=== PATIENT | male | born 1985 | race Two or more races ===

== ENCOUNTER 2018-05-25 22:03 | Emergency (ER) | payer MEDICAID, OTHER ==
[~2018-05-25] VITALS: Ht 177.8 cm; Wt 95.3 kg
[2018-05-26 02:37] LABS: Alcohol, Urine < 3.0 mg/dL (0-5); Amphetamine Screen, Urine POSITIVE (NEGATIVE); Barbiturate Scree,Urine NEGATIVE (NEGATIVE); Benzodiazephine Screen, Urine NEGATIVE (NEGATIVE); Cannabinoid Screen, Urine NEGATIVE (NEGATIVE); Cocaine Screen, Urine NEGATIVE (NEGATIVE); Opiate Scree,Urine POSITIVE (NEGATIVE); Phencyclidine Screen, Urine NEGATIVE (NEGATIVE)
[2018-05-26] MEDS: KETOROLAC TROMETH 60MG/2ML VIAL IM ONE (02:37)
[2018-05-26 03:30] VITALS: BP 134/79
[2018-05-26 04:12] LABS: Basophils # (auto) 0 uL; Basophils % (auto) 0.5 % (0.0-2.0); Eosinophils # (auto) 0.2 uL; Eosinophils % (auto) 1.8 % (0.0-7.0); Hematocrit 43.4 % (41.0-53.0); Hemoglobin 14.5 g/dL (13.5-17.5); Lymphocytes # (auto) 2.6 uL; Lymphocytes % (auto) 30.2 % (10.0-50.0); Mean Corpuscular Hemoglobin 30.5 pg (28.0-32.0); Mean Corpuscular Hgb Conc. 33.3 g/dL (32.0-36.0); Mean Corpuscular Volume 91.7 fL (80.0-100.0); Monocytes # (auto) 0.7 uL; Monocytes % (auto) 7.7 % (0.0-12.0); Neutrophils # (auto) 5.1 uL; Neutrophils % (auto) 59.8 % (37.0-80.0); Nucleated Red Blood Cells % 0.1 %; Platelet Count (auto) 188 10^3/uL (140-450); Red Blood Cells 4.74 10^6/uL (4.5-5.90); Red Cell Distribution Width 13.1 % (11.8-14.3); White Blood Cell 8.5 10^3/uL (4.4-10.8)
[2018-05-26 04:50] LABS: Albumin 3.7 g/dL (3.4-5.0); Anion Gap 8 (5-15); Blood Urea Nitrogen 8 mg/dL (7-18); Calcium 8.7 mg/dL (8.5-10.1); Carbon Dioxide 27 mmol/L (21-32); Chloride 105 mmol/L (98-107); Sodium 140 mmol/L (136-145)
[2018-05-26 04:53] LABS: Alanine Aminotransferase 20 U/L (16-61); Aspartate Aminotransferase 11 U/L (15-37); BUN/Creatinine Ratio 8.9; GFR African American 125 mL/min; GFR Non-African American 103 mL/min; Glucose 94 mg/dL (74-106)
[2018-05-26 04:58] LABS: Alkaline Phosphatase 74 U/L (45-117); Bilirubin, Total 0.3 mg/dL (0.2-1.0); Total Protein 7.5 g/dL (6.4-8.2)
== END 2018-05-26 04:51 | disposition home or self-care (01) ==
LOC: EDBD 22:03 → ER 22:03
DX: S29.011A Strain of muscle and tendon of front wall of thorax, initial encounter (principal); F19.10 Other psychoactive substance abuse, uncomplicated; X58.XXXA Exposure to other specified factors, initial encounter; Y93.89 Activity, other specified; Y99.8 Other external cause status; Y92.89 Other specified places as the place of occurrence of the external cause
CPT/HCPCS: 36415; 71045; 80053; 80307; 84484; 85025; 96372; 99284; J1885

== ENCOUNTER 2020-03-21 20:41 | Emergency (ER) | payer MEDICAID ==
[~2020-03-21] VITALS: Ht 177.8 cm; Wt 99.8 kg
[2020-03-21 21:06] VITALS: BP 140/98
[2020-03-21 21:28] LABS: Basophils # (auto) 0 10 ^3/uL (0-0.2); Basophils % (auto) 0.3 % (0.0-2.0); Eosinophils # (auto) 0.4 10 ^3/uL (0-0.8); Eosinophils % (auto) 2.7 % (0.0-7.0); Hematocrit 42.8 % (41.0-53.0); Hemoglobin 14.1 g/dL (13.5-17.5); Lymphocytes # (auto) 2.2 10 ^3/uL (0.4-5.4); Lymphocytes % (auto) 17.1 % (10.0-50.0); Mean Corpuscular Hemoglobin 30.2 pg (28.0-32.0); Mean Corpuscular Volume 91.5 fL (80.0-100.0); Monocytes # (auto) 0.6 10 ^3/uL (0-1.3); Monocytes % (auto) 4.9 % (0.0-12.0); Neutrophils # (auto) 9.8 10 ^3/uL (1.6-8.6); Nucleated Red Blood Cells % 0.1 %; Platelet Count (auto) 209 10^3/uL (140-450); Red Blood Cells 4.67 10^6/uL (4.5-5.90); Red Cell Distribution Width 12.9 % (11.8-14.3)
[2020-03-21 21:52] LABS: Calcium 9.2 mg/dL (8.5-10.1); Potassium 3.9 mmol/L (3.5-5.1)
[2020-03-21 21:56] LABS: Bilirubin, Total 0.2 mg/dL (0.2-1.0); Total Protein 8.1 g/dL (6.4-8.2)
[2020-03-21] MEDS ORDERED: AZITHROMYCIN 250 MG TAB PO ONE (23:45)
[2020-03-21] MEDS ORDERED: cefTRIAXone SODIUM 250 MG VL IM ONE (23:45)
[2020-03-22 00:30] LABS: Urine Bacteria NONE SEEN /hpf (None Seen); Urine Blood Negative /uL (Negative); Urine Mucus MANY (None Seen); Urine Specific Gravity 1.032 (1.001-1.035); Urine WBC 23 /hpf (0 - 3)
[2020-03-22 00:48] LABS: Alcohol, Urine < 3.0 mg/dL (0-10); Amphetamine Screen, Urine POSITIVE (NEGATIVE); Barbiturate Scree,Urine NEGATIVE (NEGATIVE); Benzodiazephine Screen, Urine NEGATIVE (NEGATIVE); Cannabinoid Screen, Urine NEGATIVE (NEGATIVE); Cocaine Screen, Urine NEGATIVE (NEGATIVE); Opiate Scree,Urine NEGATIVE (NEGATIVE); Phencyclidine Screen, Urine NEGATIVE (NEGATIVE)
== END 2020-03-22 01:10 | disposition home or self-care (01) ==
LOC: ER 20:44
DX: N45.1 Epididymitis (principal); N39.0 Urinary tract infection, site not specified; F15.20 Other stimulant dependence, uncomplicated; Z20.2 Contact with and (suspected) exposure to infections with a predominantly sexual mode of transmission
CPT/HCPCS: 36415; 76870; 80053; 80307; 81001; 85025; 96372; 99284; J0696

== ENCOUNTER 2024-05-25 19:00 | Emergency (ER) | payer MEDICAID ==
[~2024-05-25] VITALS: Ht 177.8 cm; Wt 100.0 kg
--- NOTE | 2024-05-25 19:16 | ECG ---
[facility] Test Date: 2024-05-25 Test Time: 19:10:12 Pat Name: PACO RIOS Department: ED Room: Gender: M Records Administrator: ARVIND : 1985 Requested By: DEREK BARRERA Order Number: [id number] Reading MD: Rodrick Rose Measurements Intervals [place] Rate: 134 P: 63 [place]: 129 QRS: 51 QRSD: 79 T: -58 QT: 362 QTc: 541 Interpretive Statements Sinus tachycardia Left atrial enlargement Abnormal R-wave progression, early transition Borderline repolarization abnormality Prolonged QT interval Electronically Signed On 05-26-2024 12:51:11 PST by Rodrick Rose Please click the below link to view image of tracing.
--- NOTE | 2024-05-25 19:18 | ED.PDOC ---
SOB-HPI HPI Comments 38-year-old male who came to ER via EMS for shortness of breath. Patient does have history of asthma. States he has been having cough and shortness of breath since yesterday. He has been having headaches generalized weakness, with substernal chest pains radiating to both his armpits. Patient was seen at urgent care and showed negative results. Today patient started having upper abdominal pain associated with nausea, which persisted and worsened throughout the day prompting him to call paramedics. On scene, patient was saturating at 90% on room air. Patient was placed at 2lpm and it improved to 95%. Patient was also given Tylenol and Zofran while en route to the ER. Blood sugar was 113 and was tachycardic on scene. Chief Complaint: Chest Pain Time Seen by MD: 19:18 Primary Care Provider: NITIN Erickson notes: Brand Marketing Specialist Notes Information Source: Patient Mode of Arrival: EMS Severity: Moderate Timing: Days Duration: Intermittent Context: With Light Exertion PE Risk Factors: None History of: None Prehospital treatment: Oxygen, Treatment Associated Signs and Symptoms: Chest Pain Quality: Tightness Radiation: Arm (R), Arm (L) If cough with SOB: Non-Productive Review of Systems: REVIEW OF SYSTEMS: No fever, no chills, or fatigue HEENT: No sore throat, no earache, no congestion, no neck pain. Cardiac: (+)chest pain. No palpitations. Lungs: (+)shortness of breath, cough. GI: No nausea, no vomiting, no diarrhea, no constipation, (+) abdominal pain : No dysuria, frequency, or urgency. No hematuria. Musculoskeletal: No joint pain , no joint swelling, no extremity edema. Skin: No rash, no itching. Neuro: (+) headache, no dizziness, (+)weakness Vital Signs Vital Signs Date Time Temp Pulse Resp B/P (MAP) Pulse Ox O2 Delivery O2 Flow Rate FiO2 05/25/24 20:53 97 Nasal Cannula* 2 28 05/25/24 20:52 99.9 05/25/24 20:51 128 18 126/89 (101) Physical Exam General: Awake, alert and oriented. No acute distress. Skin: Skin in warm, dry and intact. Appropriate color for ethnicity. Nailbeds pink with no cyanosis. HEENT: The head is normocephalic and atraumatic. Conjunctivae are clear without exudates or hemorrhage. Sclera is non-icteric. EOM are intact. No signs of nystagmus. Eyelids are normal in appearance without swelling or lesions. Oral mucosa is pink and moist Neck: The neck is supple with normal range of motion. No JVD. Cardiac: Heart rate and rhythm are normal. No murmurs, gallops, or rubs are auscultated. Respiratory: Labored breathing. Wheezing bilaterally. Abdominal: Abdomen is soft, generalized tenderness. Bowel sounds are present and normoactive in all four quadrants. Extremities: Upper and lower extremities are atraumatic in appearance without deformity or edema. Neurological: The patient is awake, alert and oriented to person, place, and time with normal speech. Speech is clear. There is no facial asymmetry. Psychiatric: Appropriate mood and affect. Good judgement and insight. No visual or auditory hallucinations. Past Medical History PAST MEDICAL HISTORY: Asthma Surgical History: Denies all surgeries Family History Family History: Reviewed,noncontributory to illness Social History Smoker: Cigarettes Alcohol: Denies ETOH Use Drugs: Denies Drug Use Lives In: Home Was a procedure done? Was a procedure done?: No Differential Dx Differential Diagnosis: Anxiety, Asthma, Bronchitis, Pneumonia, Pulmonary Embolism, Respiratory Distress, URI, Other Comments Peptic ulcer disease, gastritis, viral syndrome, pancreatitis, cholecystitis, appendicitis, diverticulitis, other X-Ray, Labs, Meds, VS Vital Signs Date Time Temp Pulse Resp B/P (MAP) Pulse Ox O2 Delivery O2 Flow Rate FiO2 05/25/24 20:53 97 Nasal Cannula* 2 05/25/24 20:52 99.9 05/25/24 20:51 99.9 128 18 126/89 (101) 96 99.9 05/25/24 20:29 133 05/25/24 20:04 100.7 05/25/24 19:48 139 20 97 Nasal Cannula* 2 28 05/25/24 19:48 100.7 139 20 113/73 (86) 97 100.7 05/25/24 19:39 20 95 Nasal Cannula* 2 28 05/25/24 19:13 100.7 140 28 138/88 (105) 95 05/25/24 19:11 134 Lab Test 05/25/24 20:04 05/25/24 19:32 05/25/24 19:21 05/25/24 19:19 Range/Units Urine Opiates Screen Pending Urine Fentanyl Screen Pending Urine Barbiturates Screen Pending Urine Phencyclidine Screen Pending Urine Amphetamines Screen Pending Urine Benzodiazepines Screen Pending Urine Cocaine Screen Pending Urine Cannabinoids Screen Pending Respiratory Syncytial Virus Antigen Pending SARS-CoV-2 Antigen (Rapid) Pending Blood Gas Specimen Type Arterial Blood Gas Sample Site Right radial Blood Gas Patient Temperature 37.0 Arterial Blood Date Drawn Arterial Blood pH 7.447 7.350-7.450 Arterial Blood Partial Pressure CO2 34.8 L 35.0-48.0 mmHg Arterial Blood Partial Pressure O2 67.8 L 83.0-108.0 mmHg Arterial Blood HCO3 23.5 21.0-28.0 mmol/L Arterial Blood Oxygen Saturation 94.4 94.0-98.0 % Arterial Blood Base Excess 0.0 -2.0-3.0 mmol/L Arterial Blood Oxyhemoglobin 93.0 L 94.0-98.0 % Arterial Blood Carboxyhemoglobin 1.1 0.5-1.5 % Arterial Blood Methemoglobin 0.4 0.0-1.5 % Neal Test Modified Blood Gas Total Hemoglobin 14.50 13.5-17.5 g/dL Blood Gas Liter Flow 2.00 Blood Gas Modality Nasal cannula FiO2 % 28.0 White Blood Count 11.7 H 4.4-10.8 10^3/uL Red Blood Count 4.48 L 4.5-5.90 10^6/uL Hemoglobin 13.6 13.5-17.5 g/dL Hematocrit 40.2 L 41.0-53.0 % Mean Corpuscular Volume 89.7 80.0-100.0 fL Mean Corpuscular Hemoglobin 30.4 28.0-32.0 pg Mean Corpuscular Hemoglobin Concent 33.8 32.0-36.0 g/dL Red Cell Distribution Width 13.7 11.8-14.3 % Platelet Count 163 140-450 10^3/uL Mean Platelet Volume 9.9 6.9-10.8 fL Neutrophils (%) (Auto) 90.9 H 37.0-80.0 % Lymphocytes (%) (Auto) 2.8 L 10.0-50.0 % Monocytes (%) (Auto) 5.7 0.0-12.0 % Eosinophils (%) (Auto) 0.4 0.0-7.0 % Basophils (%) (Auto) 0.2 0.0-2.0 % Neutrophils # (Auto) 10.6 H 1.6-8.6 10 ^3/uL Lymphocytes # (Auto) 0.3 L 0.4-5.4 10 ^3/uL Monocytes # (Auto) 0.7 0-1.3 10 ^3/uL Eosinophils # (Auto) 0 0-0.8 10 ^3/uL Basophils # (Auto) 0 0-0.2 10 ^3/uL Nucleated Red Blood Cells 0.0 % Erythrocyte Sedimentation Rate 13 0-20 mm/hr D-Dimer, Quantitative 0.36 0.0-0.49 mg/L FEU Sodium Level 135 L 136-145 mmol/L Potassium Level 4.1 3.5-5.1 mmol/L Chloride Level 101 98-107 mmol/L Carbon Dioxide Level 25 20-31 mmol/L Anion Gap 9 5-15 Blood Urea Nitrogen 10 9-23 mg/dL Creatinine 0.88 0.700-1.30 mg/dL Glomerular Filtration Rate Calc 112 >90 mL/min BUN/Creatinine Ratio 11.4 10.0-20.0 Serum Glucose 140 H 74-106 mg/dL Calcium Level 9.5 8.7-10.4 mg/dL Magnesium Level 1.5 L 1.6-2.6 mg/dL Total Bilirubin 0.3 0.2-1.0 mg/dL Aspartate Amino Transferase (AST) 21 13-40 U/L Alanine Aminotransferase (ALT) 31 7-40 U/L Alkaline Phosphatase 85 46-116 U/L Troponin I High Sensitivity < 3 L </=54 ng/L C-Reactive Protein High Sensitivity 5.35 H <1.0 mg/dL B-Type Natriuretic Peptide 13.95 0-100 pg/mL Total Protein 7.3 5.7-8.2 g/dL Albumin 4.4 3.2-4.8 g/dL Lipase 29 12-53 U/L Beta HCG, Quantitative < 0.0 L 0-2 mIU/mL Influenza Type A Antigen Pending Influenza Type B Antigen Pending Current Medications Medications (Trade) Dose Ordered Sig/Richard Route Start Time Stop Time Status Last Admin Sodium Chloride 1,000 ml @ 1,000 mls/hr Q1H ONCE IVB 05/25/24 19:15 05/25/24 20:14 DC 05/25/24 19:53 Ketorolac Tromethamine (Toradol Injection) 30 mg ONCE ONCE IV 05/25/24 19:15 05/25/24 19:16 DC 05/25/24 19:53 Albuterol (Ventolin Medneb) 2.5 mg ONCE ONCE NEB 05/25/24 19:15 05/25/24 19:16 DC 05/25/24 19:44 Ipratropium [place] (Atrovent Medneb) 0.5 mg ONCE ONCE NEB 05/25/24 19:15 05/25/24 19:16 DC 05/25/24 19:45 Acetaminophen (Tylenol Tablet) 650 mg ONCE ONCE PO 05/25/24 19:53 05/25/24 19:54 DC 05/25/24 20:04 EXAM: XY CHEST TWO VIEWS ROUTINE FINDINGS: Lines and tubes: None Chest: The heart size and pulmonary vasculature is within normal limits. No pleural effusion, pneumothorax, or consolidation. The osseous structures are grossly intact. IMPRESSION: No acute cardiopulmonary abnormality. Images Reviewed?: Images reviewed and evaluated by me (Gama) Time of 1ST Reevaluation: 19:09 Reevaluation 1ST: Unchanged Time of 2ND Reevaluation: 21:16 Reevaluation 2ND: Abdominal pain resolved. Patient Education/Counseling: Diagnosis, Treatment Family Education/Counseling: No Family Present Departure 1 Departure Time of Disposition: 21:15 Impression: Primary Impression: Asthma exacerbation Additional Impressions: Hypoxia Chest pain Abdominal pain Disposition: ADMITTED INPATIENT Condition: Stable Comments 38-year-old male present to the emergency department with chest pain, abdominal pain, shortness of breath, hypoxia with a history of asthma, fever, tachycardia. Hypoxia confirmed on ABG. Mild leukocytosis noted. Abdominal pain resolved. D-dimer negative. Troponin and EKG negative for STEMI/NSTEMI. Patient was given analgesic, nebulizer treatment, steroid, antibiotics, IV fluid. Oxygen supplemented by 2 L nasal cannula Patient admitted for further treatment, evaluation and monitoring. Extensive evaluation was performed in attempt to to identify or rule out: (See differential diagnosis section) The following tests were ordered, and results were reviewed by me: (See diagnostic results section) The following test were independently interpreted by me: EKG, chest x-ray -no acute disease I reviewed and agreed with the following test results read by other providers: Chest x-ray I reviewed the following notes from the pt's past medical encounters: (None available at this time) Additional information was gathered from interviewing the following independent historians: EMS personnel Discussion of management or test interpretation with external physician/other qualified health managed care specialist: N/A Addressed an acute or chronic illness that poses a threat to life or bodily function: Asthma with acute exacerbation with hypoxia Decision regarding hospitalization or escalation of hospital level of care: Risk and benefits of admission for further treatment of patient's condition was considered. Due to patient's current clinical condition, high risk of decline and poor outcome if discharged and need for further inpatient management and monitoring, patient will be admitted to the hospital. Critical Care Note Critical Care Time?: Yes (35 min-critical care time only) Critical care comment: Total critical care time: Approximately 35 minutes Due to a high probability of clinically significant, life threatening de terioration, the patient required my highest level of preparedness to intervene emergently and I personally spent this critical care time directly and personally managing the patient. This critical care time included obtaining a history; examining the patient; pulse oximetry; ordering and review of studies; arranging urgent treatment with development of a management plan; evaluation of patient's response to treatment; frequent reassessment; and, discussions with other providers. This critical care time was performed to assess and manage the high probability of imminent, life-threatening deterioration that could result in multi-organ failure. It was exclusive of separately billable procedures and treating other patients and teaching time. Please see my other sections and the rest of the note for further information on patient assessment and treatment. Stability Stability form required: No Heart Score Heart Score: Heart Score Response (Comments) Value History Slightly Suspicious 0 EKG Normal 0 Age <45 0 Risk Factors No known risk factors 0 Troponin Normal limit 0 Total 0 I personally scribed for DEREK BARRERA MD ([email or web address]) on 05/25/24 at 19:18. Electronically submitted by Rey Romero ([facility]). I personally scribed for DEREK BARRERA MD ([email or web address]) on 05/25/24 at 20:41. Electronically submitted by Rey Romero ([facility] DEREK BARRERA MD May 25, 2024 19:18
[2024-05-25 19:35] LABS: Basophils # (auto) 0 10 ^3/uL (0-0.2); Basophils % (auto) 0.2 % (0.0-2.0); Eosinophils # (auto) 0 10 ^3/uL (0-0.8); Eosinophils % (auto) 0.4 % (0.0-7.0); Hematocrit 40.2 % (41.0-53.0); Hemoglobin 13.6 g/dL (13.5-17.5); Lymphocytes # (auto) 0.3 10 ^3/uL (0.4-5.4); Lymphocytes % (auto) 2.8 % (10.0-50.0); Mean Corpuscular Hemoglobin 30.4 pg (28.0-32.0); Mean Corpuscular Hgb Conc. 33.8 g/dL (32.0-36.0); Mean Corpuscular Volume 89.7 fL (80.0-100.0); Monocytes # (auto) 0.7 10 ^3/uL (0-1.3); Monocytes % (auto) 5.7 % (0.0-12.0); Neutrophils # (auto) 10.6 10 ^3/uL (1.6-8.6); Neutrophils % (auto) 90.9 % (37.0-80.0); Platelet Count (auto) 163 10^3/uL (140-450); Red Blood Cells 4.48 10^6/uL (4.5-5.90); Red Cell Distribution Width 13.7 % (11.8-14.3); White Blood Cell 11.7 10^3/uL (4.4-10.8)
[2024-05-25] MEDS: ALBUTEROL SULF 2.5 MG/0.5ML(0.5%) NEB SOLN NEB ONE (19:44)
[2024-05-25] MEDS: IPRATROPIUM BROM 0.5 MG/2.5ML INH SOL NEB ONE (19:45)
[2024-05-25 19:48] VITALS: PULSE 139; RESP 20; O2SAT 97
[2024-05-25 19:53] LABS: Alanine Aminotransferase 31 U/L (7-40); Albumin 4.4 g/dL (3.2-4.8); Alkaline Phosphatase 85 U/L (46-116); Anion Gap 9 (5-15); Aspartate Aminotransferase 21 U/L (13-40); BUN/Creatinine Ratio 11.4 (10.0-20.0); Bilirubin, Total 0.3 mg/dL (0.2-1.0); Blood Urea Nitrogen 10 mg/dL (9-23); Calcium 9.5 mg/dL (8.7-10.4); Carbon Dioxide 25 mmol/L (20-31); Chloride 101 mmol/L (98-107); Lipase 29 U/L (12-53); Potassium 4.1 mmol/L (3.5-5.1); Total Protein 7.3 g/dL (5.7-8.2)
[2024-05-25] MEDS: SODIUM CHLORIDE 0.9% 1,000 ML IVB ONE (19:53)
[2024-05-25] MEDS: KETOROLAC TROMETH 30 MG/ML 1ML VIAL IV ONE (19:53)
[2024-05-25 19:55] LABS: Sodium 135 mmol/L (136-145)
[2024-05-25 19:56] LABS: Glucose 140 mg/dL (74-106); Magnesium 1.5 mg/dL (1.6-2.6)
[2024-05-25] MEDS: ACETAMINOPHEN 325 MG TAB PO ONE (20:04)
--- NOTE | 2024-05-25 20:15 | DVH ---
EXAM: XY CHEST TWO VIEWS ROUTINE CLINICAL HISTORY: Shortness of breath, chest pain TECHNIQUE: Frontal and lateral views of the chest WID: COMPARISON: None FINDINGS: Lines and tubes: None Chest: The heart size and pulmonary vasculature is within normal limits. No pleural effusion, pneumothorax, or consolidation. The osseous structures are grossly intact. IMPRESSION: No acute cardiopulmonary abnormality.
[2024-05-25 20:35] LABS: CRP High Sensitivity 5.35 mg/dL (<1.0)
[2024-05-25 20:39] LABS: Erythrocyte Sedimentation Rate 13 mm/hr (0-20)
[2024-05-25 20:51] VITALS: BP 126/89; PULSE 128; RESP 18
[2024-05-25 20:52] VITALS: TEMP 99.9
[2024-05-25 20:53] VITALS: O2SAT 97
[2024-05-25] MEDS ORDERED: DexAMETHasone INJECTION 10 MG in D5W 5% 50 ML IV ONE (21:15)
[2024-05-25] MEDS ORDERED: DexAMETHasone SOD PHOS 10MG/1ML VIAL INJ IV ONE (21:30)
[2024-05-25] MEDS ORDERED: cefTRIAXone 1GM/50ML D5W 50 ML IV ONE (21:30)
[2024-05-25] MEDS ORDERED: ALBUTEROL SULF 2.5 MG/0.5ML(0.5%) NEB SOLN NEB ONE (21:30)
[2024-05-25] MEDS ORDERED: AZITHROMYCIN 500MG/ 250ML 250 ML IV ONE (21:30)
[2024-05-25] MEDS ORDERED: ALBUTEROL SULF 2.5 MG/0.5ML(0.5%) NEB SOLN ONE (21:35)
[2024-05-25 21:44] LABS: Rapid Influenza A Negative (Negative); Rapid Influenza B Negative (Negative)
[2024-05-25 21:44] LABS: COVID19 ANTIGEN SOFIA FIA NEGATIVE (NEGATIVE); Respiratory Syncytial Virus Ag Negative (Negative)
[2024-05-25] MEDS ORDERED: DOXYCYCLINE 100MG/250ML 250 ML IV ONE (22:00)
--- NOTE | 2024-05-29 15:33 | ECG ---
[facility] Test Date: 2024-05-25 Test Time: 20:29:52 Pat Name: PACO RIOS Department: ER Room: Gender: M Ict Customer Support Officer: ER : 1985 Requested By: DEREK BARRERA Order Number: [id number] Reading MD: Rodrick Rose Measurements Intervals [place] Rate: 133 P: 67 PA: 138 QRS: 72 QRSD: 78 T: -58 QT: 359 QTc: 535 Interpretive Statements Sinus tachycardia Abnormal R-wave progression, early transition Nonspecific repol abnormality, diffuse leads Prolonged QT interval Electronically Signed On 06-02-2024 9:45:44 PST by Rodrick Rose Please click the below link to view image of tracing.
== END 2024-05-25 23:34 | disposition left against medical advice (07) ==
LOC: ER 19:00 → EDBD 19:00 → ER 23:34
DX: J45.901 Unspecified asthma with (acute) exacerbation (principal); R09.02 Hypoxemia; R10.10 Upper abdominal pain, unspecified; R07.89 Other chest pain; F17.210 Nicotine dependence, cigarettes, uncomplicated; Z20.822 Contact with and (suspected) exposure to COVID-19; Z79.899 Other long term (current) drug therapy
CPT/HCPCS: 36415; 36600; 71046; 80053; 82805; 83690; 83735; 83880; 84484; 84702; 85025; 85379; 85652; 86141; 87426; 87804; 87807; 93005; 94640; 96361; 96374; 99285; J1885; J7030